=== PATIENT | female | born 1960 | race Caucasian/White ===

== ENCOUNTER 2019-05-14 11:04 | Emergency (ER) | payer BC ==
[~2019-05-14] VITALS: Ht 167.6 cm; Wt 56.8 kg
[2019-05-14 11:10] VITALS: Ht 167.6 cm; Wt 56.8 kg
[2019-05-14] MEDS ORDERED: MIRALAX17 GM PO (11:11)
[2019-05-14 12:17] LABS: CALC OSMOLALITY 282 mosm/kg (275-300); CALCIUM 8.7 mg/dL (8.5-10.1); CARBON DIOXIDE 30.5 mmol/L (21.0-32.0); CHLORIDE - SERUM 105 mmol/L (98-107); CREATININE - SERUM 0.9 mg/dL (0.6-1.3); GLUCOSE 90 mg/dL (74-106); POTASSIUM - SERUM 3.8 mmol/L (3.5-5.1); SODIUM 142 mmol/L (136-145); UREA NITROGEN 12 mg/dL (7-18); eGFR NON AFRICAN AMERICAN 68 mL/min (90-120)
[2019-05-14 12:26] LABS: ALBUMIN 3.7 g/dL (3.4-5.0); ALKALINE PHOSPHATASE 70 U/L (46-116); ALT (SGPT) 24 U/L (10-68); AMYLASE - SERUM 36 U/L (25-115); BASOPHILS 0 % (0-2); BILIRUBIN - TOTAL 0.53 mg/dL (0.2-1.3); EOSINOPHILS 1.6 % (0-7); HEMATOCRIT 37.3 % (36.0-48.0); LIPASE 66 U/L (73-393); LYMPHOCYTES 28.5 % (15-50); MCH 31.7 pg (26.0-34.0); MCHC 32.2 g/dL (31.0-37.0); MCV 98.4 fL (80.0-100.0); MEAN PLATELET VOLUME 10.8 fL (7.4-10.4); MONOCYTES 9.1 % (2-11); NEUTROPHILS 60.8 % (40-80); PLATELET COUNT 165 10x3/uL (130-400); PROTEIN - SERUM 6.3 g/dL (6.4-8.2); RBC 3.79 10x6/uL (4.00-5.40); RDW 13.3 % (11.5-14.5); TROPONIN-I < 0.017 ng/mL (0.000-0.060); WBC 5.5 10x3/uL (4.8-10.8)
[2019-05-14] MEDS ORDERED: ZOFRAN ODT4 MG/UDTAB PO (13:05)
[2019-05-14 13:59] LABS: APPEARANCE CLEAR (CLEAR); BACTERIA FEW /hpf (NEGATIVE); BILIRUBIN NEGATIVE (NEGATIVE); COLOR YELLOW (YELLOW); EPITHELIAL CELLS OCC /hpf (0-5); GLUCOSE NEGATIVE (NEGATIVE); KETONE NEGATIVE (NEGATIVE); NITRITE NEGATIVE (NEGATIVE); PROTEIN NEGATIVE (NEGATIVE); RED CELLS - URINE OCC /hpf (0-5); UROBILINOGEN NORMAL (NORMAL); WHITE CELLS - URINE NSEEN /hpf (NEGATIVE)
[2019-05-14 14:58] VITALS: BP 148/74
== END 2019-05-14 15:00 | disposition home or self-care (01) ==
LOC: D.ER 11:04
PROVIDERS: Family Medicine
DX: K52.9 Noninfective gastroenteritis and colitis, unspecified (principal); Z87.442 Personal history of urinary calculi

== ENCOUNTER 2019-06-13 10:36 | Day surgery (SDC) | payer BC ==
[~2019-06-13] VITALS: Ht 167.6 cm; Wt 57.3 kg
--- NOTE | ~2019-06-13 | OP ---
PATIENT NAME: EDDI MALLORY MEDICAL RECORD: [id number] :60 LOCATION:D.OPS ADMISSION DATE: SURGEON: MICHELLE HARMON MD DATE OF OPERATION: 06/13/2019 PREOPERATIVE DIAGNOSES: 1. Biliary dyskinesia. 2. Symptomatic gallbladder polyp. POSTOPERATIVE DIAGNOSES: 1. Biliary dyskinesia. 2. Symptomatic gallbladder polyp. PROCEDURE: 1. Laparoscopic cholecystectomy. 2. Intraoperative cholangiography without immediate surgeon interpretation. SURGEON: Michelle Harmon MD PHYSICIAN PRACTICE COORDINATOR: None. BLOOD LOSS: Minimal. ANESTHESIA: General. COMPLICATIONS: None. The risks, possible complications, and alternatives to the procedure were explained to the patient. She elects to proceed. The discussion specifically included, but was not limited to, bleeding requiring emergency reoperation, infection, intestinal injury, common bile duct injury. OPERATIVE COURSE: The patient was conveyed to the operating room urgently on 06/13/2019. General anesthesia was induced by the anesthesia staff. The abdomen was sterilely prepped and draped. I incised below the umbilicus. A Soo trocar type of entry was performed by lifting on the other side of the fascia with 0 Vicryl sutures and incising the fascia between them. The 12-mm trocar was inserted. CO2 insufflation was begun. Once sufficient pneumoperitoneum had been achieved, a 5-mm trocar was inserted above the umbilicus. Another 5-mm trocar was inserted far laterally in the right upper quadrant and another 5-mm trocar was inserted far laterally in the left upper quadrant. During insertion of all the trocars, there was no apparent injury to the bowels, any intraperitoneal or retroperitoneal structures. An abdominal survey was undertaken. There were adhesions in the lower abdomen. I grasped the gallbladder. I then advanced a cholangiogram trocar. I punctured the fundus of the gallbladder. I aspirated bile. I then injected dye. Under real time fluoroscopy, static images were obtained and these cholangiographic images are sent to the radiologist for interpretation. I aspirated bile and removed the cholangiogram trocar. No liver biopsy was indicated as the patient's liver was of normal size and normal texture. OPERATIVE REPORT [id number] EDDI MALLORY The gallbladder was retracted cephalad. The infundibulum was retracted laterally. Blunt dissection was begun in the triangle of Calot. One cystic artery and one cystic duct were identified. These were clipped multiply and divided between clips. The gallbladder was then excised from its bed in the liver. It was placed within a bag retrieval device and was withdrawn through the umbilical fascia defect. A 12-mm trocar was reintroduced. I irrigated and aspirated the right upper quadrant. There was no bleeding even at low pressure of 8. Anish was added to the gallbladder fossa for additional hemostasis. All trocars were removed and the abdomen desufflated. The fascia below the umbilicus was closed with horizontal mattress #1 Vicryls. The subdermis was approximated with interrupted 3-0 Vicryls. The skin was approximated with a running intracuticular 3-0 Vicryl. The skin above the umbilicus was closed with a single interrupted intracuticular 3-0 Vicryl. The other skin incisions were closed with interrupted intracuticular 3-0 Vicryls. Benzoin and Steri-Strips were applied. The patient was then extubated and conveyed to post-anesthesia care unit where she was in stable condition. She will be dismissed home on hydrocodone as well as Colace. I will see her in the office in 2-3 weeks. TRANSINT:[id number] Voice Confirmation ID: [id number] DOCUMENT ID: [id number] MICHELLE HARMON MD CC: TASHI MONTES MD [id number] DICTATION DATE: 06/13/191649 ENGINEER PROCESS: 06/14/19 0236 [facility] 06/13/19 [facility] [address] [place] [address]
--- NOTE | ~2019-06-13 | HP ---
PATIENT: EDDI MALLORY MEDICAL RECORD: [id number] ACCOUNT: [id number] LOCATION:[facility] : 60 ADMISSION DATE: 06/13/19 PCP: TASHI MONTES MD HISTORY AND PHYSICAL EXAMINATION CHIEF COMPLAINT: Chest pain. HISTORY OF PRESENT ILLNESS: I recently saw the patient in my office. We had scheduled her for a laparoscopic cholecystectomy, possible intraoperative cholangiography, and possible liver biopsy. The patient has known biliary dyskinesia. The patient has right upper quadrant pain with a Hayward's sign. The patient has a low ejection fraction on PIPIDA scan with ejection fraction. She has undergone a pretty extensive workup of her gallbladder disease. We were awaiting for a cardiac evaluation by Dr. Lizarraga. Dr. Lizarraga is out of town and fortunately Dr. Kaminski will be providing us with a cardiac clearance prior to surgery. She also has a gallbladder polyp. I think she has at least 2 indications for laparoscopic cholecystectomy. The pain is associated with nausea. It has been worsening. PAST MEDICAL AND SURGICAL HISTORY: Lower midline incision from a colectomy, C-sections. Hyperglycemia. She has had gynecologic surgery as well. HOME MEDICINES: Please see the nursing list. REVIEW OF SYSTEMS: Positive for shortness of breath. Positive for abdominal pain. Positive for chest pain. PHYSICAL EXAMINATION: GENERAL: The patient does not appear acutely ill. She does not appear chronically ill. VITAL SIGNS: Reviewed. EARS: External ears appear normal. EYES: Extraocular movements are intact. NECK: Trachea is midline. CHEST: No intercostal retractions. PULMONARY: Nonlabored, no stridor. ABDOMEN: Right upper quadrant tenderness with Hayward's sign. EXTREMITIES: No peripheral cyanosis. IMPRESSION: 1. Biliary dyskinesia. 2. Symptomatic gallbladder polyp. PLAN: Plan will be laparoscopic cholecystectomy, intraoperative cholangiography with possible liver biopsy. The risks, possible complications and alternatives to the procedure were explained to the patient. She elects to proceed. The discussion specifically included, but was not limited to, bleeding requiring emergency reoperation, infection, intestinal injury, common bile duct injury. TRANSINT:[id number] Voice Confirmation ID: [id number] DOCUMENT ID: [id number] HISTORY AND PHYSICAL [id number] EDDI MALLORY MICHELLE HARMON MD CC: TASHI MONTES MD and MIKY SOSA MD [id number] DICTATION DATE: 06/13/19 1223 [facility] OPERATOR: 06/13/19 1305 [facility] [address] [place], [facility]
[~2019-06-13 10:36] MED LIST: MIRALAX17 GM PO; ZOFRAN ODT4 MG/UDTAB PO
[2019-06-13 11:12] LABS: BASOPHILS 0 % (0-2); EOSINOPHILS 1.5 % (0-7); HEMATOCRIT 38.2 % (36.0-48.0); HEMOGLOBIN 12.5 g/dL (12-16); IMMATURE GRANULOCYTES 0.2 % (0-5); LYMPHOCYTES 33.9 % (15-50); MCHC 32.7 g/dL (31.0-37.0); MCV 94.8 fL (80.0-100.0); MEAN PLATELET VOLUME 10.4 fL (7.4-10.4); MONOCYTES 8.3 % (2-11); NEUTROPHILS 56.1 % (40-80); PLATELET COUNT 180 10x3/uL (130-400); RBC 4.03 10x6/uL (4.00-5.40); RDW 12.6 % (11.5-14.5); WBC 6.5 10x3/uL (4.8-10.8)
[2019-06-13 11:18] LABS: CALC OSMOLALITY 281 mosm/kg (275-300); CALCIUM 8.8 mg/dL (8.5-10.1); CARBON DIOXIDE 29.1 mmol/L (21.0-32.0); CHLORIDE - SERUM 103 mmol/L (98-107); GLUCOSE 118 mg/dL (74-106); SODIUM 139 mmol/L (136-145); UREA NITROGEN 20 mg/dL (7-18); eGFR NON AFRICAN AMERICAN 60 mL/min (90-120)
[2019-06-13 11:36] LABS: ALBUMIN 4.2 g/dL (3.4-5.0); ALKALINE PHOSPHATASE 66 U/L (46-116); ALT (SGPT) 19 U/L (10-68); BILIRUBIN - TOTAL 0.44 mg/dL (0.2-1.3); CKMB 0.6 U/L (0.0-3.6); CREATINE KINASE 55 UL (21-215); PRO BNP 79 pg/mL (0-125); PROTEIN - SERUM 6.8 g/dL (6.4-8.2)
[2019-06-13 11:37] LABS: TROPONIN-I < 0.017 ng/mL (0.000-0.060)
[2019-06-13 13:02] LABS: APPEARANCE CLEAR (CLEAR); BILIRUBIN NEGATIVE (NEGATIVE); COLOR YELLOW (YELLOW); GLUCOSE NEGATIVE (NEGATIVE); KETONE NEGATIVE (NEGATIVE); NITRITE NEGATIVE (NEGATIVE); PROTEIN TRACE mg/dL (NEGATIVE); UROBILINOGEN NORMAL (NORMAL)
[2019-06-13 13:03] LABS: APTT 29.2 SECONDS (22.8-39.4); INR 0.99 (0.85-1.17); PROTIME 13.1 SECONDS (11.6-15.0)
[2019-06-13 13:04] LABS: BACTERIA FEW /hpf (NEGATIVE); RED CELLS - URINE 0-5 /hpf (0-5); WHITE CELLS - URINE 0-5 /hpf (NEGATIVE)
[2019-06-13 13:04] LABS: D-DIMER-QUANTITATIVE < 0.27 ug/mLFEU (0.20-0.54)
[2019-06-13 14:02] VITALS: Ht 167.6 cm; Wt 57.3 kg
[2019-06-13 15:25] VITALS: BP 120/82
== END 2019-06-13 19:52 | disposition home or self-care (01) ==
LOC: D.ER 10:36 → D.OPS 10:36 → EDSTATUS 13:00 → D.OPS 19:52
PROVIDERS: Family Medicine; ATTEND Surgery
DX: K82.8 Other specified diseases of gallbladder (principal); K82.4 Cholesterolosis of gallbladder; R07.9 Chest pain, unspecified

== ENCOUNTER 2020-09-08 16:03 | Outpatient (CLI) | payer BC ==
[2020-04-11 06:18] VITALS: BMI 20.7
[~2020-09-08 16:03] MED LIST changes: +GABAPENTIN100 MG PO; +HYDROCODON-ACE1 EA10 PO; +VISTARIL50 MG PO
== END 2020-09-08 23:59 | disposition home or self-care (01) ==
LOC: D.MAMMO 16:03
PROVIDERS: ATTEND Family Medicine
DX: Z12.31 Encounter for screening mammogram for malignant neoplasm of breast (principal)